=== PATIENT | female | born 1980 | race Caucasian/White ===

== ENCOUNTER 2017-07-25 11:54 | Emergency (ER) | payer OTHER ==
[~2017-07-25] VITALS: Ht 160 cm; Wt 64.4 kg
[~2017-07-25 11:54] MED LIST: ACCUNEB 0.1.25 MG/1 INH; ALBUTEROL0.09 MG/Ac IH; ANAPROX DS550 MG PO; ASTELIN137 MCG/AC NAS; AUGMENTIN 875875 MG PO; BACTRIM DS 8001 TA1 PO; CEPHALEXIN500 M1 PO; CIPRO500 MG PO; CLARITIN10 MG PO; CYCLOBENZAPRINE5 M3 PO; DARVOCET N 1001 TAB PO; DICLOFENAC POTA50 MG PO; DIFLUCAN150 MG PO; DURICEF500 MG PO; FIORICET 325 MG1 TAB PO; FLAGYL500 MG PO; FLEXERIL5 MG PO; HYDROCODONE BIT1 T11 PO; KEFLEX500 MG PO; MAXALT5 MG PO; MEDROL DOSEPAK4 MG PO; MOTRIN800 MG PO; Motrin,Rufen400 MG PO; NASONEX0.05 MG/AC NAS; NEXIUM40 MG PO; NORCO 5-325 TA1 EACH PO; OS-CAL 500 + D1 TAB PO; PEPCID20 MG PO; PERCOCET 325 MG1 TA2 PO; PERCOCET 325 MG1 TA7 PO; PREDNICOT20 MG PO; PREDNISONE20 MG PO; PRILOSEC20 M1 PO; PRILOSEC40 MG PO; SYNTHROID0.025 MG PO; TESSALON PERLE100 M1 PO; TESSALON PERLE200 MG PO; TRAMADOL HCL50 MG PO; TRAZADONE HYDR100 MG PO; TYLENOL EXTRA500 M2 PO; XANAX2 MG PO; ZITHROMAX Z PA250 MG PO; ZYRTEC10 MG PO; Zofran4 MG PO
[2017-07-25 12:10] VITALS: BP 146/84
[2017-07-25] MEDS ORDERED: PENICILLIN VK500 MG PO (12:19)
[2017-07-25] MEDS ORDERED: Peridex 473 ML473 ML PO (12:19)
[2017-07-25] MEDS ORDERED: DIFLUCAN150 MG PO (12:32)
== END 2017-07-25 12:53 | disposition home or self-care (01) ==
LOC: ED 11:54
DX: K02.9 Dental caries, unspecified (principal); R03.0 Elevated blood-pressure reading, without diagnosis of hypertension; F17.200 Nicotine dependence, unspecified, uncomplicated; Z88.8 Allergy status to other drugs, medicaments and biological substances; Z88.6 Allergy status to analgesic agent; Z91.040 Latex allergy status; Z79.899 Other long term (current) drug therapy

== ENCOUNTER → 2018-04-14 | Outpatient (CLI) | payer OTHER ==
[~2018-04-14] MED LIST changes: +PENICILLIN VK500 MG PO; +Peridex 473 ML473 ML PO
[2018-04-14 08:16] LABS: ALBUMIN 3.5 gm/dl (3.1-4.5); ALKALINE PHOSPHATASE 102 U/L (45-117); BUN 9 mg/dl (7-24); CHLORIDE 108 mmol/L (98-107); CHOLESTEROL 171 mg/dL (<200); CREATININE 0.73 mg/dL (0.55-1.02); FREE T4 0.78 ng/dl (0.76-1.46); HDL CHOLESTEROL 24 mg/dl (40-60); LDL CHOLESTEROL 72 mg/dL (9-159); POTASSIUM 3.7 mmol/L (3.5-5.1); SGOT/AST 46 IU/L (3-35); SGPT/ALT 99 U/L (12-78); SODIUM 141 mmol/L (136-145); TOTAL PROTEIN 6.8 gm/dL (6.4-8.2); TRIGLYCERIDES 373 mg/dl (<150); VLDL CHOLESTEROL 75 mg/dL (6-40)
== END | disposition home or self-care (01) ==
LOC: LAB 07:11
PROVIDERS: Family Medicine
DX: E03.9 Hypothyroidism, unspecified (principal); E28.2 Polycystic ovarian syndrome; R63.5 Abnormal weight gain; E55.9 Vitamin D deficiency, unspecified; B37.3 Candidiasis of vulva and vagina

== ENCOUNTER 2018-04-23 11:41 | Emergency (ER) | payer OTHER ==
[~2018-04-23] VITALS: Ht 160 cm; Wt 65.8 kg
[2018-04-23 11:47] VITALS: BP 144/86
[2018-04-23] MEDS ORDERED: REMERON SOLTAB45 MG PO (11:50)
[2018-04-23] MEDS ORDERED: DOXEPIN50 MG PO (11:50)
== END 2018-04-23 14:21 | disposition home or self-care (01) ==
LOC: ED 11:41
DX: R51 Headache (principal); R11.0 Nausea; F17.200 Nicotine dependence, unspecified, uncomplicated; Z88.6 Allergy status to analgesic agent; Z88.8 Allergy status to other drugs, medicaments and biological substances; Z91.040 Latex allergy status; Z79.899 Other long term (current) drug therapy

== ENCOUNTER → 2018-07-23 | Outpatient (CLI) | payer OTHER ==
[~2018-07-23] MED LIST changes: +DOXEPIN50 MG PO; +REMERON SOLTAB45 MG PO
[2018-07-23 13:03] LABS: HEMATOCRIT 40.2 % (37.0-47.0); HEMOGLOBIN 13.8 g/dl (12.0-16.0); MEAN CELL VOLUME 94.1 fl (81.0-99.0); MEAN CORPUSCULAR HGB 32.3 pg (27.0-31.0); MEAN CORPUSCULAR HGB CONC 34.3 g/dl (33.0-37.0); MEAN PLATELET VOLUME 11.1 fl (9.6-12.3); RED BLOOD COUNT 4.27 10*6/uL (4.10-5.10); RED CELL DISTRI WIDTH 12.7 % (0-14.5); WHITE BLOOD COUNT 12.3 10*3/uL (4.8-10.8)
[2018-07-23 13:35] LABS: ALBUMIN 4.1 gm/dl (3.1-4.5); ALKALINE PHOSPHATASE 78 U/L (45-117); BUN 8 mg/dl (7-24); CHLORIDE 107 mmol/L (98-107); CREATININE 0.76 mg/dL (0.55-1.02); POTASSIUM 3.6 mmol/L (3.5-5.1); SGOT/AST 14 IU/L (3-35); SGPT/ALT 24 U/L (12-78); SODIUM 139 mmol/L (136-145); TOTAL PROTEIN 7.7 gm/dL (6.4-8.2)
[2018-07-24 07:05] LABS: HEPATITIS B SURFACE AG Negative (Negative); HEPATITIS C VIRUS ANTIBODY <0.1 s/co (0.0-0.9)
== END | disposition home or self-care (01) ==
LOC: LAB 12:19
PROVIDERS: Family Medicine
DX: Z20.2 Contact with and (suspected) exposure to infections with a predominantly sexual mode of transmission (principal)

== ENCOUNTER 2018-09-30 10:35 | Emergency (ER) | payer OTHER ==
[~2018-09-30] VITALS: Ht 160 cm; Wt 68.0 kg
[2018-09-30 11:08] LABS: BASO # 0.1 10*3/uL (0.0-0.1); BASO % 0.5 % (0.0-1.0); EOS # 0.1 10*3/uL (0.0-0.4); EOS % 0.5 % (1.0-4.0); HEMATOCRIT 42.8 % (37.0-47.0); HEMOGLOBIN 14.7 g/dl (12.0-16.0); LYMPH # 2.2 10*3/uL (1.3-4.4); LYMPH % 16.6 % (27.0-41.0); MEAN CELL VOLUME 95.5 fl (81.0-99.0); MEAN CORPUSCULAR HGB 32.8 pg (27.0-31.0); MEAN CORPUSCULAR HGB CONC 34.3 g/dl (33.0-37.0); MEAN PLATELET VOLUME 10.3 fl (9.6-12.3); MONO # 0.5 10*3/uL (0.1-1.0); MONO % 3.4 % (3.0-9.0); NEUT # 10.3 10*3/uL (2.3-7.9); NEUT % 78.2 % (47.0-73.0); PLATELET COUNT AUTOMATED 288 10*3/uL (130-400); RED BLOOD COUNT 4.48 10*6/uL (4.10-5.10); RED CELL DISTRI WIDTH 12.5 % (0-14.5); WHITE BLOOD COUNT 13.1 10*3/uL (4.8-10.8)
[2018-09-30 11:24] LABS: ALBUMIN 4.2 gm/dl (3.1-4.5); ALKALINE PHOSPHATASE 101 U/L (45-117); BUN 6 mg/dl (7-24); CHLORIDE 101 mmol/L (98-107); CREATININE 0.83 mg/dL (0.55-1.02); LIPASE 75 U/L (73-393); POTASSIUM 3.8 mmol/L (3.5-5.1); SGOT/AST 82 IU/L (3-35); SGPT/ALT 83 U/L (12-78); SODIUM 135 mmol/L (136-145)
[2018-09-30 11:26] LABS: B-hCG (QUALITATIVE) NEGATIVE (NEGATIVE)
[2018-09-30 11:43] LABS: BILIRUBIN NEGATIVE (NEGATIVE); BLOOD NEGATIVE (NEGATIVE); CLARITY CLEAR (CLEAR); COLOR STRAW (YELLOW); GLUCOSE NEGATIVE (NEGATIVE); KETONE NEGATIVE (NEGATIVE); LEUKO ESTERASE NEGATIVE (NEGATIVE); NITRITE NEGATIVE (NEGATIVE); SPECIFIC GRAVITY <= 1.005 (1.005-1.030); UROBILINOGEN 0.2 E.U./dl (0.2-1.0)
[2018-09-30 11:58] LABS: RBC 0-2 rbc/hpf (0-2)
[2018-09-30 12:18] VITALS: BP 125/72
== END 2018-09-30 13:08 | disposition home or self-care (01) ==
LOC: ED 10:35
PROVIDERS: Emergency Medicine
DX: R33.9 Retention of urine, unspecified (principal); F17.200 Nicotine dependence, unspecified, uncomplicated; Z90.710 Acquired absence of both cervix and uterus; Z90.49 Acquired absence of other specified parts of digestive tract; Z98.890 Other specified postprocedural states; Z88.5 Allergy status to narcotic agent; Z88.8 Allergy status to other drugs, medicaments and biological substances; Z91.040 Latex allergy status; Z88.6 Allergy status to analgesic agent

== ENCOUNTER → 2019-01-18 | Outpatient (CLI) | payer BC, OTHER ==
[~2019-01-18] MED LIST changes: +CHANTIX1 M1 PO; +EFFEXOR XR150 M1 PO; +LAMICTAL200 MG PO; +MINIPRESS5 MG PO; +PROAIR HFA8.5 GM INH; +PROPRANOLOL HCL20 M1 PO; +XANAX1 MG PO; -XANAX2 MG PO
== END | disposition home or self-care (01) ==
LOC: ORTHO 01:06
DX: M67.432 Ganglion, left wrist (principal); R20.0 Anesthesia of skin; R20.2 Paresthesia of skin

== ENCOUNTER 2019-05-11 20:52 | Inpatient (IN) | payer OTHER ==
[~2019-05-11] VITALS: Ht 160 cm; Wt 66.3 kg
--- NOTE | ~2019-05-11 | CON ---
[place], [place] REPORT OF CONSULTATION NAME: CHARISSA CAICEDO UNIT #: [id number] ROOM: 517 DOCTOR: SARA CORDERO MD BIRTHDATE: [birth year] DOS: 05/12/2019 GASTROENDOSCOPIC CONSULTATION REPORT I think I have dictated this consultation two nights ago; however, I do not find it in the computer. I am redoing getting cases missing. HISTORY OF PRESENT ILLNESS: The patient was presented with a chief complaint of abdominal pain, cramp, diarrhea, undergone investigation. The patient had white blood cell of 12, H and H of 13 and 41. INR was normal. Urinalysis was normal. Comprehensive metabolic panel, electrolytes balanced, lipase 50. Drug screening was positive for THC and benzos. CT scan of the abdomen and pelvis, no evidence of acute pathology and no diverticulitis. CBC differential continues to be the same. PAST MEDICAL HISTORY: Bipolar, hypothyroidism, gastroesophageal reflux, and depression. PAST SURGICAL HISTORY: Renal lithiasis, appendectomy, hysterectomy. ALLERGIES: CODEINE, TORADOL, VISTARIL, BENADRYL, TRAMADOL. MEDICATIONS: List has been reviewed. Detail of history was reassessed. SOCIAL HISTORY: Nonalcohol consumer, nonsmoker, she says. REVIEW OF SYSTEMS: HEENT: Denies double vision or blurred vision. RESPIRATORY: Denies acute shortness of breath. CARDIOVASCULAR: No chest pain. DIGESTIVE SYSTEM: Diarrhea and abdominal cramp pain. PHYSICAL EXAMINATION: VITAL SIGNS: Stable. HEENT: Within normal limit. NECK: Supple, no thyromegaly, no cervical lymphadenopathy. CHEST: Symmetric anatomy, equal expansion. No wheeze, no rhonchi. HEART: Normal sinus rhythm, no gallop, no murmur. ABDOMEN: Soft. No hepato-organomegaly. Bowel sounds present. No pulsatile mass. EXTREMITIES: No cyanosis, no pedal edema. NEUROLOGIC: Alert, oriented to time, place and person. IMPRESSION: Diarrhea. PLAN AND DISCUSSION: Other adjunctive diagnoses as outlined above, anxiety, depression. I am going to proceed with colonoscopy and terminal ileoscopy if possible. [place], [place] REPORT OF CONSULTATION NAME: CHARISSA CAICEDO UNIT #: [id number] ROOM: 517 DOCTOR: SARA CORDERO MDTE: 79 SARA CORDERO MD CM:CONSTR:REPORT OF CONSULTATION 1908 05/13/19 0343 interface
--- NOTE | ~2019-05-11 | DS ---
[place], [place] DISCHARGE SUMMARY NAME: CHARISAS CAICEDO UNIT #: [id number] ROOM: [facility] DOCTOR: BRENT GIL MD BIRTHDATE: [birth year] DOS: 05/14/2019 DISCHARGE DIAGNOSES: 1. Acute lower gastrointestinal bleed. The patient is status post colonoscopy and small intestine biopsy. The patient is doing much better. She has some left lower quadrant pains from an ovarian cyst or even mild hemorrhage in the area on CAT scan of the abdomen, which was repeated for these pains. The patient's colonoscopy was normal. 2. Bipolar disorder. 3. Hypothyroidism. 4. Generalized anxiety disorder. 5. History of diverticulosis. 6. Gastroesophageal reflux disease and esophagitis. 7. Nicotine smoke dependence. 8. Major depression, recurrent, moderate. 9. History of hysterectomy, appendectomy, and kidney stone. 10. Migraine type headaches. 11. Hidradenitis suppurativa. The patient presented with 5 days of diarrhea followed by noticing blood in her stools. HOSPITAL COURSE: The patient was admitted and taken for colonoscopy, which was normal. The patient started having increased left lower quadrant pains, which were further evaluated with a CT scan of the abdomen and pelvis that showed minor folliculitis. No other acute abnormality. The patient is agreeable to go home and she wanted pain medications for home, which cannot be prescribed to her. I tried to give her tramadol versus oxycodone versus hydrocodone versus morphine. All of them are showing up as reported anaphylactic allergies to the medications, so she is being sent home on Tylenol 1000 mg 3 times a day for pain before discharge. No leukocytosis. Hemoglobin of 12. Normal platelets, normal serum electrolytes, bilirubin, liver enzymes, a small intestinal biopsy was performed, which is pending. DISCHARGE MEDICATIONS: Tylenol 1000 mg 3 times a day as needed for pain, Protonix 20 mg a day, Chantix as directed, propranolol 20 mg b.i.d., prazosin 5 mg at bedtime, mirtazapine 45 mg a day, Lamictal 200 mg 3 times a day, doxepin 100 mg at bedtime, Xanax as needed. [place], [place] DISCHARGE SUMMARY NAME: CHARISSA CAICEDO UNIT #: [id number] ROOM: 517 DOCTOR: BRENT GIL MD BIRTHDATE: [birth year] BRENT GIL MD CM:RICHIE [id number] BRENT GIL MD 05/14/19 1503 interface
--- NOTE | ~2019-05-11 | WRIGHTHP ---
[place], [place] PATIENT HISTORY AND PHYSICAL EXAM NAME: CHARISSA CAICEDO [facility] #: [id number] UNIT #: [id number] ROOM: 517 DOCTOR: BRENT GIL MD BIRTHDATE: [birth year] DOS: 05/12/2019 HISTORY OF PRESENT ILLNESS: The patient is a 38-year-old female with a past medical history of: 1. Bipolar disorder. 2. History of hypothyroidism. 3. Hiatal hernia. 4. Generalized anxiety disorder. 5. History of diverticulosis. 6. Gastroesophageal reflux disease and esophagitis. 7. Nicotine smoke dependence. 8. Depression. 9. History of hysterectomy, appendectomy, kidney stones. 10. History of migraine headaches. 11. The patient has history of hidradenitis suppurativa for which she takes Augmentin off and on. The patient presented to the Emergency Department with diarrhea for 5 days after she was taking Augmentin and finally, she started noticing blood in her stools. After admission, the patient has not had diarrhea today. The patient is also having lower abdominal pains and constant nausea. The patient does have history of diverticulosis and diverticulitis. The patient had mild leukocytosis and is going to be checked for Clostridium difficile colitis. A GI consult with Dr. Kahn was obtained and the patient was admitted for hydration with normal saline. No chest pain, shortness of breath, no other GI, or urinary symptoms otherwise. REVIEW OF SYSTEMS: GI: The patient with nausea and rectal bleeding. CARDIOVASCULAR: No chest pains or palpitations. RESPIRATORY: No increasing shortness of breath or wheezing. FAMILY HISTORY: Noncontributory. HOME MEDICATIONS: Xanax, Remeron, doxepin, and Nexium. ALLERGIES: KNOWN ALLERGIES TO CODEINE, HYDROXYZINE, TORADOL, LATEX, TRAMADOL. PHYSICAL EXAMINATION: GENERAL: Alert, oriented x 3, no visible distress. HEENT AND NECK: Extraocular movements are intact. Sclerae are anicteric. Oral mucosa is moist and clean. No obvious facial weakness. Neck is supple without any lymphadenopathy. No thyromegaly. No JVD. No carotid arterial bruits. LUNGS: Clear to auscultation. No wheezing. No rhonchi. CARDIOVASCULAR SYSTEM: Heart rate is regular in rate and rhythm. S1 and S2 normally audible. No significant murmur or any other abnormal cardiac sounds. ABDOMEN: The patient has some tenderness in the lower abdomen, right and left lower quadrant and suprapubic area with no rigidity, guarding, or rebound tenderness. No obvious organomegaly. [place], [place] PATIENT HISTORY AND PHYSICAL EXAM NAME: CHARISSA CAICEDO UNIT #: [id number] ROOM: [facility] DOCTOR: BRENT GIL MD BIRTHDATE: [birth year] EXTREMITIES: Without significant cyanosis or edema. Warm to touch. CENTRAL NERVOUS SYSTEM: Alert and oriented x 3. Cranial nerves II-XII are intact. Speech is normal. The patient is able to move all extremities. Normal muscle strength. Deep tendon reflexes are equal on both sides. Plantars were downgoing. LABORATORY DATA: CBC showing a white cell count 11,600, normal platelets. CT of the abdomen and pelvis showing no acute abnormality. Urine drug screen positive for marijuana and benzodiazepines. Normal serum electrolytes. IMPRESSION AND PLAN: 1. The patient presenting with acute diarrhea followed by rectal bleeding and mild leukocytosis. The patient will be checked for Clostridium difficile colitis and a consult has been obtained with the banding machine operator, Dr. Kahn. The patient's diarrhea has stopped today, but she still has significant lower abdominal pains and some tenderness with persistent nausea. I will perform stool cultures and the patient may require colonoscopy for further workup. 2. The patient has bipolar disorder and depression. I will continue her home medications including venlafaxine, mirtazapine, lamotrigine, and doxepin. 3. Generalized anxiety disorder is being treated and controlled. The patient is on Xanax as needed. 4. Gastroesophageal reflux disease and esophagitis, treated with Protonix, asymptomatic. 5. Recurrent migraine headaches, controlled with propranolol, which is being continued. BRENT GIL MD CM:HISPHYS:PATIENT HISTORY AND PHYSICAL EXAMINATION [id number] BRENT GIL MD 05/12/19 1106 interface
--- NOTE | ~2019-05-11 | O ---
[place], [place] OPERATIVE NOTE NAME: CHARISSA CAICEDO UNIT #: [id number] ROOM: 517 DOCTOR: GIL BLACKWOOD,SARA BIRTHDATE: [birth year] DOS: 05/12/2019 PROCEDURE: Today's procedure part of investigation is colonoscopy. PREMEDICATION: Propofol. SCOPE: Olympus forward-viewing colonoscope 10L video. REPORT: After putting the patient in left lateral position and application of lubricant to the scope, the scope was introduced. Thereafter, under direct visualization, I advanced through the length of colon without difficulty. The base of cecum was explored. Terminal ileum was entered and some inflammation noticed. No rosi ulceration. Biopsy obtained. Random biopsy of colon as well obtained. Air was suctioned out. The patient was extubated, tolerated the procedure well. IMPRESSION: Normal colonoscopic examination, normal terminal ileum with minimal inflammation. PLAN AND DISCUSSION: Stool study is necessary if she is going to continue with diarrhea and that should be 2 days after colonic prep and colonoscopy that has been already done. Otherwise, conservative therapy with management, dicyclomine 10 mg will be of benefit p.o. daily. SARA CORDERO MD CM:OPRECORD:OPERATIVE NOTE [id number] SARA CORDERO MD 05/13/19 0412 interface
--- NOTE | ~2019-05-11 | PR ---
[place], [place] PROGRESS NOTE NAME: CHARISSA CAICEDO UNIT #: [id number] ROOM: 517 DOCTOR: BRENT GIL MD BIRTHDATE: [birth year] DOS: 05/13/2019 SUBJECTIVE: The patient is having significant left lower quadrant pain. She is status post colonoscopy. OBJECTIVE: VITAL SIGNS: Blood pressure 126/86, heart rate 72 beats per minute, breathing 18 times per minute, temperature 98 degrees Fahrenheit. GENERAL APPEARANCE: The patient is alert and oriented x 3, in no visible distress. HEENT AND NECK: Exam within normal limits. CARDIOVASCULAR SYSTEM: Heart rate is regular in rate and rhythm. S1 and S2 normally audible. LUNGS: Clear to auscultation. ABDOMEN: Soft. Some left lower quadrant tenderness. No obvious organomegaly. Bowel sounds are present. EXTREMITIES: Without significant cyanosis or edema. IMPRESSION: 1. The patient with probable hemorrhagic or proteinaceous cyst of the left ovary, but no leukocytosis. 2. Acute diarrhea and abdominal pains with rectal bleeding. The patient is status post colonoscopy and colonic biopsy showing normal results. She is started on dicyclomine by Dr. Kahn. 3. Bipolar disorder and depression, being treated and followed. The patient is on venlafaxine, mirtazapine, and lamotrigine along with doxepin. 4. Generalized anxiety disorder, treated with Xanax as needed. 5. Gastroesophageal reflux disease and esophagitis. Treated with Protonix and asymptomatic. 6. Migraine type headaches are controlled with propranolol. BRENT GIL MD CM:PNTRANS [id number] BRENT GIL MD 05/25/19 0943 interface
[~2019-05-11 20:52] MED LIST changes: -CHANTIX1 M1 PO; -EFFEXOR XR150 M1 PO; -LAMICTAL200 MG PO; -MINIPRESS5 MG PO; -PROAIR HFA8.5 GM INH; -PROPRANOLOL HCL20 M1 PO
[2019-05-11 20:54] VITALS: BP 116/75
[2019-05-11 21:36] LABS: BILIRUBIN NEGATIVE (NEGATIVE); BLOOD NEGATIVE (NEGATIVE); CLARITY CLEAR (CLEAR); COLOR YELLOW (YELLOW); GLUCOSE NEGATIVE (NEGATIVE); KETONE NEGATIVE (NEGATIVE); LEUKO ESTERASE NEGATIVE (NEGATIVE); NITRITE NEGATIVE (NEGATIVE); UROBILINOGEN 0.2 E.U./dl (0.2-1.0)
[2019-05-11 21:40] LABS: BASO % 0.3 % (0.0-1.0); EOS # 0.3 10*3/uL (0.0-0.4); EOS % 2.6 % (1.0-4.0); HEMATOCRIT 40.1 % (37.0-47.0); HEMOGLOBIN 13.5 g/dl (12.0-16.0); LYMPH # 3.3 10*3/uL (1.3-4.4); LYMPH % 27.4 % (27.0-41.0); MEAN CELL VOLUME 100.3 fl (81.0-99.0); MEAN CORPUSCULAR HGB 33.8 pg (27.0-31.0); MEAN CORPUSCULAR HGB CONC 33.7 g/dl (33.0-37.0); MEAN PLATELET VOLUME 10.1 fl (9.6-12.3); MONO # 0.6 10*3/uL (0.1-1.0); MONO % 4.9 % (3.0-9.0); NEUT # 7.8 10*3/uL (2.3-7.9); NEUT % 64.1 % (47.0-73.0); PLATELET COUNT AUTOMATED 241 10*3/uL (130-400); RED CELL DISTRI WIDTH 12.8 % (0-14.5); WHITE BLOOD COUNT 12.1 10*3/uL (4.8-10.8)
[2019-05-11 21:49] LABS: INTERNATIONAL NORM RATIO 0.9 (2.0-3.5)
[2019-05-11 21:52] LABS: BACTERIA TRACE; WBC 0-2 wbc/hpf (0-5)
[2019-05-11 21:59] LABS: ALBUMIN 3.8 gm/dl (3.1-4.5); ALKALINE PHOSPHATASE 76 U/L (45-117); BUN 9 mg/dl (7-24); CHLORIDE 107 mmol/L (98-107); CREATININE 0.79 mg/dL (0.55-1.02); LIPASE 50 U/L (73-393); POTASSIUM 3.9 mmol/L (3.5-5.1); SGOT/AST 13 IU/L (3-35); SGPT/ALT 19 U/L (12-78); SODIUM 138 mmol/L (136-145); TOTAL PROTEIN 7.1 gm/dL (6.4-8.2)
[2019-05-11 22:00] VITALS: BP 116/79
[2019-05-11 22:11] LABS: URINE AMPHETAMINES < 1000 (1000ng/ml); URINE BARBITURATES < 200 (200ng/ml); URINE BENZODIAZEPINES > 200 (200ng/ml); URINE CANNABINOIDS (THC) > 50 (50ng/ml); URINE COCAINE < 300 (300ng/ml); URINE METHADONE < 300 (300ng/ml); URINE OPIATES < 300 (300ng/ml)
[2019-05-11 22:12] LABS: URINE PHENCYCLIDINE < 25 (25ng/ml)
[2019-05-12] VITALS (9 sets, daily range): BP systolic 90–141; BP diastolic 50–77
[2019-05-12] MEDS ORDERED: EFFEXOR XR150 M1 PO (01:13)
[2019-05-12] MEDS ORDERED: LAMICTAL200 MG PO (01:13)
[2019-05-12] MEDS ORDERED: MINIPRESS5 MG PO (01:14)
[2019-05-12] MEDS ORDERED: PROPRANOLOL HCL20 M1 PO (01:14)
[2019-05-12] MEDS ORDERED: CHANTIX1 M1 PO (01:15)
[2019-05-12] MEDS ORDERED: PROAIR HFA8.5 GM INH (01:16)
[2019-05-12 06:40] LABS: BASO # 0.1 10*3/uL (0.0-0.1); BASO % 0.4 % (0.0-1.0); EOS # 0.4 10*3/uL (0.0-0.4); EOS % 3.4 % (1.0-4.0); HEMATOCRIT 38.3 % (37.0-47.0); HEMOGLOBIN 12.6 g/dl (12.0-16.0); LYMPH # 3.9 10*3/uL (1.3-4.4); LYMPH % 33.2 % (27.0-41.0); MEAN CELL VOLUME 101.3 fl (81.0-99.0); MEAN CORPUSCULAR HGB 33.3 pg (27.0-31.0); MEAN CORPUSCULAR HGB CONC 32.9 g/dl (33.0-37.0); MEAN PLATELET VOLUME 10.5 fl (9.6-12.3); MONO # 0.7 10*3/uL (0.1-1.0); MONO % 5.8 % (3.0-9.0); NEUT # 6.5 10*3/uL (2.3-7.9); NEUT % 56.3 % (47.0-73.0); PLATELET COUNT AUTOMATED 240 10*3/uL (130-400); RED BLOOD COUNT 3.78 10*6/uL (4.10-5.10); RED CELL DISTRI WIDTH 12.7 % (0-14.5); WHITE BLOOD COUNT 11.6 10*3/uL (4.8-10.8)
[2019-05-13] VITALS: BP 95/53
[2019-05-13 06:59] LABS: BASO % 0.4 % (0.0-1.0); EOS # 0.3 10*3/uL (0.0-0.4); EOS % 3.3 % (1.0-4.0); HEMATOCRIT 37.9 % (37.0-47.0); HEMOGLOBIN 12.6 g/dl (12.0-16.0); MEAN CELL VOLUME 101.9 fl (81.0-99.0); MEAN CORPUSCULAR HGB 33.9 pg (27.0-31.0); MEAN CORPUSCULAR HGB CONC 33.2 g/dl (33.0-37.0); MEAN PLATELET VOLUME 10.6 fl (9.6-12.3); MONO # 0.4 10*3/uL (0.1-1.0); MONO % 4.8 % (3.0-9.0); NEUT # 5.2 10*3/uL (2.3-7.9); NEUT % 57.7 % (47.0-73.0); PLATELET COUNT AUTOMATED 228 10*3/uL (130-400); RED BLOOD COUNT 3.72 10*6/uL (4.10-5.10)
[2019-05-13 07:26] LABS: CHLORIDE 111 mmol/L (98-107); POTASSIUM 3.9 mmol/L (3.5-5.1); SODIUM 143 mmol/L (136-145)
[2019-05-13 07:46] LABS: CREATININE 0.76 mg/dL (0.55-1.02)
[2019-05-13 08:00] VITALS: BP 110/70
[2019-05-13 08:11] LABS: BUN 8 mg/dl (7-24)
[2019-05-13 12:00] VITALS: BP 107/54
[2019-05-13 16:00] VITALS: BP 126/86
[2019-05-13 20:00] VITALS: BP 128/87
[2019-05-14] VITALS: BP 101/66
[2019-05-14 06:55] LABS: BASO % 0.4 % (0.0-1.0); EOS # 0.3 10*3/uL (0.0-0.4); HEMATOCRIT 35.8 % (37.0-47.0); HEMOGLOBIN 11.9 g/dl (12.0-16.0); LYMPH % 31.5 % (27.0-41.0); MEAN CELL VOLUME 100.8 fl (81.0-99.0); MEAN CORPUSCULAR HGB 33.5 pg (27.0-31.0); MEAN CORPUSCULAR HGB CONC 33.2 g/dl (33.0-37.0); MEAN PLATELET VOLUME 10.3 fl (9.6-12.3); MONO # 0.5 10*3/uL (0.1-1.0); MONO % 5.2 % (3.0-9.0); NEUT # 5.7 10*3/uL (2.3-7.9); NEUT % 59.3 % (47.0-73.0); PLATELET COUNT AUTOMATED 212 10*3/uL (130-400); RED BLOOD COUNT 3.55 10*6/uL (4.10-5.10); RED CELL DISTRI WIDTH 12.7 % (0-14.5); WHITE BLOOD COUNT 9.7 10*3/uL (4.8-10.8)
[2019-05-14 07:14] LABS: BUN 9 mg/dl (7-24); CHLORIDE 109 mmol/L (98-107); CREATININE 0.79 mg/dL (0.55-1.02); POTASSIUM 3.8 mmol/L (3.5-5.1); SODIUM 141 mmol/L (136-145)
[2019-05-14 08:00] VITALS: BP 120/80
[2019-05-14 12:00] VITALS: BP 120/82
== END 2019-05-14 15:30 | disposition home or self-care (01) | DRG 378 ==
LOC: ED 20:52 → EDHOLD 05-12 00:18 → 5E 05-12 00:18
PROVIDERS: Nurse Practitioner Family; ADMIT Internal Medicine
PROC: 0DBB8ZX Excision of Ileum, Via Natural or Artificial Opening Endoscopic, Diagnostic (ICD-10-PCS; principal; 2019-05-12)
PROC: 0DBE8ZX Excision of Large Intestine, Via Natural or Artificial Opening Endoscopic, Diagnostic (ICD-10-PCS; 2019-05-12)
DX: K92.2 Gastrointestinal hemorrhage, unspecified (principal); F33.1 Major depressive disorder, recurrent, moderate; K21.0 Gastro-esophageal reflux disease with esophagitis; N83.209 Unspecified ovarian cyst, unspecified side; L73.2 Hidradenitis suppurativa; E03.9 Hypothyroidism, unspecified; F41.1 Generalized anxiety disorder; F17.200 Nicotine dependence, unspecified, uncomplicated; L73.8 Other specified follicular disorders; G43.909 Migraine, unspecified, not intractable, without status migrainosus; K57.90 Diverticulosis of intestine, part unspecified, without perforation or abscess without bleeding; Z90.49 Acquired absence of other specified parts of digestive tract; Z90.710 Acquired absence of both cervix and uterus; Z87.442 Personal history of urinary calculi; Z88.8 Allergy status to other drugs, medicaments and biological substances; Z88.5 Allergy status to narcotic agent; Z91.040 Latex allergy status; Z91.81 History of falling

== ENCOUNTER 2019-05-15 10:10 | Emergency (ER) | payer BC, OTHER ==
[~2019-05-15] VITALS: Ht 160 cm; Wt 65.8 kg
[2019-05-15 10:10] VITALS: BP 120/76
[~2019-05-15 10:10] MED LIST changes: +CHANTIX1 M1 PO; +EFFEXOR XR150 M1 PO; +LAMICTAL200 MG PO; +MINIPRESS5 MG PO; +PROAIR HFA8.5 GM INH; +PROPRANOLOL HCL20 M1 PO
[2019-05-15 10:42] LABS: BASO % 0.4 % (0.0-1.0); EOS # 0.2 10*3/uL (0.0-0.4); EOS % 1.8 % (1.0-4.0); HEMATOCRIT 39.3 % (37.0-47.0); HEMOGLOBIN 13.6 g/dl (12.0-16.0); LYMPH # 2.2 10*3/uL (1.3-4.4); MEAN CELL VOLUME 98.5 fl (81.0-99.0); MEAN CORPUSCULAR HGB 34.1 pg (27.0-31.0); MEAN CORPUSCULAR HGB CONC 34.6 g/dl (33.0-37.0); MEAN PLATELET VOLUME 9.9 fl (9.6-12.3); MONO # 0.5 10*3/uL (0.1-1.0); MONO % 4.7 % (3.0-9.0); NEUT # 7.9 10*3/uL (2.3-7.9); NEUT % 72.6 % (47.0-73.0); PLATELET COUNT AUTOMATED 262 10*3/uL (130-400); RED BLOOD COUNT 3.99 10*6/uL (4.10-5.10); RED CELL DISTRI WIDTH 12.6 % (0-14.5); WHITE BLOOD COUNT 10.9 10*3/uL (4.8-10.8)
[2019-05-15 10:59] LABS: ALBUMIN 3.7 gm/dl (3.1-4.5); ALKALINE PHOSPHATASE 76 U/L (45-117); BUN 10 mg/dl (7-24); CHLORIDE 109 mmol/L (98-107); CREATININE 0.87 mg/dL (0.55-1.02); LIPASE 58 U/L (73-393); POTASSIUM 4.2 mmol/L (3.5-5.1); SGOT/AST 17 IU/L (3-35); SGPT/ALT 23 U/L (12-78); SODIUM 141 mmol/L (136-145); TOTAL PROTEIN 7.5 gm/dL (6.4-8.2)
== END 2019-05-15 11:30 | disposition left against medical advice (07) ==
LOC: ED 10:10
PROVIDERS: Physician Assistant
DX: R10.32 Left lower quadrant pain (principal); Z90.49 Acquired absence of other specified parts of digestive tract; Z90.710 Acquired absence of both cervix and uterus; Z88.8 Allergy status to other drugs, medicaments and biological substances; Z88.6 Allergy status to analgesic agent; Z91.040 Latex allergy status; Z79.899 Other long term (current) drug therapy

== ENCOUNTER → 2019-06-18 | Outpatient (CLI) | payer OTHER | END | disposition home or self-care (01) | LOC: US 09:49 | DX: K80.20 Calculus of gallbladder without cholecystitis without obstruction (principal); Z90.710 Acquired absence of both cervix and uterus ==

== ENCOUNTER 2019-06-22 07:40 | Emergency (ER) | payer OTHER ==
[2019-06-22 07:40] VITALS: BP 00/00
== END 2019-06-22 08:30 | disposition expired ==
LOC: ED 07:40
DX: I46.9 Cardiac arrest, cause unspecified (principal); Z79.899 Other long term (current) drug therapy; Z91.040 Latex allergy status; Z88.6 Allergy status to analgesic agent